=== PATIENT | male | born 1945 ===

== ENCOUNTER 2019-03-25 13:00 | Emergency (ER) | payer MEDICARE, OTHER ==
[2019-03-25 13:26] VITALS: TEMP 97.5
--- NOTE | 2019-03-25 13:50 | RAD ---
EXAM DESCRIPTION: Chest,2 Views CLINICAL HISTORY: HEMOPTYSIS COMPARISON: None TECHNIQUE: PA/lateral FINDINGS: Multilumen catheter on the right has been placed with tip in the region of the mid to lower superior vena cava. Increased density in the left lung suggests volume loss with elevated left hemidiaphragm or subpulmonic effusion and upper lobe atelectasis. Central obstructing neoplasm must be considered with this appearance and CT of the chest is recommended. Placement of a multilumen catheter suggest that patient may have other imaging studies elsewhere. Heart size is large with normal pulmonary vascularity. No right pleural effusion or complicating pneumothorax. Right lung is clear with no consolidating infiltrate. Lateral view shows intact sternum and T-spine. IMPRESSION: Opaque left hemithorax consistent with a combination of large pleural effusion and upper lobe atelectasis. Correlate with chest CT findings. Electronically signed by: Mahesh Foote MD 03/25/2019 1:47 PM CDT
--- NOTE | 2019-03-25 14:04 | ED.PDOC ---
History of Present Illness - General Chief Complaint: Respiratory Problem Stated Complaint: coughed up blood Time Seen by Provider: 03/25/19 13:16 Source: patient, family Exam Limitations: no limitations - History of Present Illness Comments: HEMOPTYSIS X 1. NEW DIALYSIS PT FOR H/O NIDDM AND HTN. PT WAS 2 HRS INTO SESSION TODAY AND DEVELOPED DYSPNEA X 1 HR. HE GENERATED A COUGH X 1, WHICH PRODUCED BLOOD (AMT EQUIVALENT TO THUMBNAIL). AFTER THE COUGH, HIS DYSPNEA DISSIPATED. HE IS CURRENTLY SX FREE AND FEELS MUCH BETTER. NO PRIOR HEMOPTYSIS. 49 YR LIFELONG SMOKING HX, QUIT THIS PAST NOV. Timing/Duration: just prior to arrival Cough Quality/Degree: other - bloody Possible Cause: no prior episodes Improving Factors: nothing Worsening Factors: nothing Associated Symptoms: denies symptoms Respiratory Risk Factors: no cause identified Allergies/Adverse Reactions: Allergies NO KNOWN ALLERGY Allergy (Verified 03/25/19 13:26) Home Medications: Ambulatory Orders Amitriptyline HCl [Amitriptyline Hydrochlori] 50 mg PO BEDTIME 03/25/19 Amlodipine Besylate 10 mg PO DAILY 03/25/19 Atorvastatin Calcium [Lipitor] 10 mg PO DAILY 03/25/19 Megestrol Acetate 40 mg PO BID 03/25/19 Moxifloxacin HCl (Ophth) [Moxifloxacin] 1 drop BOTH_EYES TID 03/25/19 Sitagliptin Phosphate [Januvia] 100 mg PO DAILY 03/25/19 hydrALAZINE HCl [(None)] 25 mg PO BID 03/25/19 Review of Systems - Review of Systems Constitutional: Denies: chills, fever EENTM: Denies: eye pain, ear pain, nose pain, throat pain, mouth pain Respiratory: Denies: cough, short of breath, wheezing Cardiology: Denies: chest pain, palpitations Gastrointestinal/Abdominal: Denies: abdominal pain, nausea Genitourinary: Denies: discharge, dysuria, hematuria, pain Musculoskeletal: Denies: back pain, joint pain, neck pain Skin: Denies: change in hair/nails, rash Neurological: Denies: headache, numbness, paresthesia Endocrine: States: intolerance to cold - PT CHRONICALLY FEELS COLD. . Denies: excessive sweating, increased hunger, increased thirst, increased urine, unexplained weight gain, unexplained weight loss Hematologic/Lymphatic: Denies: blood clots, easy bleeding, easy bruising, swollen glands All other Systems: Reviewed and Negative Past Medical History (General) - Patient Medical History Hx Hypertension: Yes Hx Diabetes: Yes - Vaccination History Hx Influenza Vaccination: Yes Hx Pneumococcal Vaccination: Yes - Social History Hx Tobacco Use: Yes Hx Alcohol Use: No Hx Substance Use Treatment: No Family Medical History - Family History Mother Family History: Unknown Physical Exam - Physical Exam General Appearance: Alert, No apparent distress Eye Exam: bilateral normal ENT Exam: normal ENT inspection, hearing grossly normal, TMs normal, pharynx normal Neck: non-tender, full range of motion, supple, normal inspection, trachea midline Respiratory: chest non-tender, lungs clear, normal breath sounds, no respiratory distress, no accessory muscle use Cardiovascular/Chest: normal peripheral pulses, regular rate, rhythm, no edema, no gallop, no JVD, no murmur Gastrointestinal/Abdominal: normal bowel sounds, non tender, soft, no organomegaly, no pulsatile mass Extremity: normal range of motion, non-tender, normal inspection, no pedal jose l a, no calf tenderness Neurologic: state game protector II-XII nml as tested, no motor/sensory deficits, alert, normal mood/affect, oriented x 3 Skin Exam: normal color, warm/dry Lymphatic: no adenopathy Progress - Progress Progress: 03/25/19 14:35 HYPOXIA, RESOLVED - PT WAS 92% ON 2 L ON ADMISSION, NOW IS 98% ON RA. CBC: WBC 21, ELEV NEUTS. HGB 8.6, NORMO/NORMO. CMP: K+2.8, ELEV BUN AND CR (ESRD), ALB 1.6 COAGS: INR NL. PTT ELEV AT 38. CXR: OPAQUE L HEMITHORAX, LARGE PLEURAL EFFUSION. BASED ON ABOVE, 50 PACK YR SMOKING HX, AND AGE >50, CT CHEST ORDERED. 03/25/19 15:04 CT SHOWS LIKELY CANCER, MIQUEL LUNG NEOPLASM 7.7 X 5.5 CM. BX RECOMMENDED. I AM CALLING [facility]COLOGY IN [facility] TO TRY TO GET THEM SET UP [place] WITH APPT FOR FURTHER CARE. 03/25/19 15:11 I PERSONALLY CALLED AND SPOKE WITH THE STORE GROUP MANAGER AT [facility] IN [facility]. SHE SAID WE ARE TO FAX THEM THE PT DEMOGRAPHICS SHEET WITH A GOOD CONTACT TEL FOR THE PT. [place] [facility] WILL CALL PT TO SCHEDULE SOONEST AVAILABLE APPT WITH ONE OF THE 4 ONCOLOGISTS. THE NURSE HELPED ME WITH THIS AND I COMMUNICATED THIS TO THE PT AND HIS , BOTH OF WHOM EXPRESSED UNDERSTANDING OF THE CANCER DX AND NEED FOR ONCOLOGY F/U. I ALSO GAVE THE TEL OF THE ONCOLOGY OFFICE TO PT AND INSTRUCTED HER TO CALL THEM IF HE AND DON'T HEAR FROM THEM BY TOMORROW. 03/25/19 15:19 PT'S VS ARE WNL. HE IS SATTING 98% ON RA. THE LEUKOCYTOSIS AND ANEAMIA ARE FROM HIS CANCER, THUS ABX ARE NOT INDICATED. PT IS HEMODYNAMICALLY STABLE FOR DC TO HOME AND NO ADMISSION IS WARRANTED. HE JUST NEEDS CLOSE F/U WITH ONCOLOGY AND NEPHROLOGY/DIALYSIS. Departure - Departure Clinical Impression: Hemoptysis, ESRD (end stage renal disease) on dialysis, History of tobacco use in past year, Neutrophilic leukocytosis, Anemia, normocytic normochromic, Hypo kalemia, Hypoalbuminemia, Hypoxia, Microscopic hematuria, Asymptomatic bacteriuria, Glucosuria, Primary cancer of left lung Dyspnea Qualifiers: Dyspnea type: shortness of breath Qualified Code(s): R06.02 - Shortness of breath Ibb-tytevso-uqgvonynl diabetes mellitus with renal complications Qualifiers: Diabetes mellitus assisted insulin use: without assisted use Diabetes mellitus complication detail: with chronic kidney disease Chronic kidney disease stage: on chronic dialysis Qualified Code(s): E11.22 - Type 2 diabetes mellitus with diabetic chronic kidney disease Disposition: Discharge to Home or Self Care Condition: Poor Departure Forms: ED Discharge - Pt. Copy, Patient Portal Self Enrollment Instructions: Lung Cancer (DC), Coughing up Blood Diet: diabetic diet Activity: increase activity as tolerated Referrals: Bobby Antonio MD [Primary Care Provider] - 1-2 Weeks Home Medications: Ambulatory Orders Amitriptyline HCl [Amitriptyline Hydrochlori] 50 mg PO BEDTIME 03/25/19 Amlodipine Besylate 10 mg PO DAILY 03/25/19 Atorvastatin Calcium [Lipitor] 10 mg PO DAILY 03/25/19 Megestrol Acetate 40 mg PO BID 03/25/19 Moxifloxacin HCl (Ophth) [Moxifloxacin] 1 drop BOTH_EYES TID 03/25/19 Sitagliptin Phosphate [Januvia] 100 mg PO DAILY 03/25/19 hydrALAZINE HCl [(None)] 25 mg PO BID 03/25/19 Additional Instructions: You have lung cancer on the left side. This is what caused you to cough up blood. [facility] in [place] will be calling you to schedule an appointment with the oncologist (cancer doctor). Please call them at [phone] if you do not hear from them by tomorrow. They will take excellent care of you and will be directing the next steps. Please continue taking all of your home medications and going to dialysis with your kidney doctor, as you have been.
--- NOTE | 2019-03-25 14:38 | CT ---
EXAM DESCRIPTION: Chest w/o Contrast CLINICAL HISTORY: 74 years, Male, HEMOPTYSIS, L OPAQUE HEMITHORAX, NEOPLASM CONCERN. COMPARISON: None TECHNIQUE: Thin-section noncontrast axial CT images are obtained according to our protocol. Reconstructed MPR images are created and reviewed as well. FINDINGS: Lungs: Large left pleural effusion is present. There is volume loss involving the left lower lobe posteriorly and complete atelectasis of the anterior and apicoposterior segments of the left upper lobe. Inhomogeneity of the atelectatic left upper lobe is noted with central lower density area which could represent primary pulmonary malignancy. Higher density area more peripherally represents the consolidated atelectatic/drowned lung. The presumed central mass measures approximately 7.7 x 5.5 cm. With complete occlusion of the anterior and apicoposterior segmental bronchi centrally, endobronchial approach for biopsy is recommended. Transthoracic approach may be more difficult since atelectatic lung obscures the presumed central obstructing tumor. Few additional tiny nodules are seen in the aerated portion of the lingula 2 mm, superior segment right lower lobe 4 mm, and clustered punctate 2 mm nodules in the anterior segment right upper lobe. These can be followed. Mediastinum: Lymph nodes are normal in size. Normal vascular contours. Heart size is normal with small pericardial effusion. Moderate coronary arterial calcification. Chest wall/axilla: No mass or adenopathy. Lower neck/supraclavicular: No mass or adenopathy. Thyroid gland is inhomogeneous. Correlate with sono findings. Upper abdomen: Unremarkable upper abdominal viscera. IMPRESSION: Atelectatic segments of the left upper lobe and left lower lobe with large left pleural effusion. Inhomogeneity of the atelectatic left upper lobe suggesting central obstructing neoplasm 7.7 x 5.5 cm. See above. This exam was performed according to our departmental dose-optimization program, which includes automated exposure control, adjustment of the mA and/or kV according to patient size and/or use of iterative reconstruction technique. Total DLP equals 220.05 mGycm. Electronically signed by: Mahesh Foote MD 03/25/2019 2:35 PM CDT
[2019-03-25 16:09] VITALS: BP 173/86
[2019-03-25 16:40] VITALS: O2SAT 98
== END 2019-03-25 16:40 | disposition home or self-care (01) ==
LOC: ER 13:00 → EDBD 13:00 → ER 16:40
DX: C34.92 Malignant neoplasm of unspecified part of left bronchus or lung (principal); R04.2 Hemoptysis; R06.02 Shortness of breath; D72.828 Other elevated white blood cell count; D64.9 Anemia, unspecified; E88.09 Other disorders of plasma-protein metabolism, not elsewhere classified; R31.29 Other microscopic hematuria; R82.71 Bacteriuria; R81 Glycosuria; N18.6 End stage renal disease; E87.6 Hypokalemia; E11.22 Type 2 diabetes mellitus with diabetic chronic kidney disease; I12.0 Hypertensive chronic kidney disease with stage 5 chronic kidney disease or end stage renal disease; Z99.2 Dependence on renal dialysis; Z79.899 Other long term (current) drug therapy; Z87.891 Personal history of nicotine dependence